=== PATIENT | female | born 1940 | race Caucasian/White ===

== ENCOUNTER 2020-08-05 08:06 | Outpatient (CLI) | payer MEDICARE ==
[~2020-08-05] VITALS: Ht 157.6 cm; Wt 89.0 kg
[~2020-08-05 08:06] MED LIST: ASPIRIN E.C. 8181 MG PO; CALCIUM 500500 M2 PO; CALCIUM500 MG PO; CARDI-OMEGA1000 MG PO; FOSAMAX5 MG PO; PROBIOTICA100 MILLIO PO; SYNTHROID0.088 MG PO
[2020-08-05 08:44] VITALS: BP 143/72; PULSE 68; TEMP 98.4
[2020-08-05] MEDS ORDERED: CALCIUM 600-D 61 TAB PO (08:49)
[2020-08-05] MEDS ORDERED: TYLENOL 325MG325 MG PO (08:50)
[2020-08-05] MEDS ORDERED: EPA FISH OIL1 SGL PO (08:50)
[2020-08-05] MEDS ORDERED: FLORINEF ACETA0.1 MG PO (11:55)
--- NOTE | 2020-08-05 12:00 | NUR ---
PT BACK TO ROOM, SITS UP IN W/C. NO C/O DIZZINESS AT THIS TIME, B/P 120/67 PULSE 68, 99%, RR AT 16. SKIN WARM AND DRY. INT D'CD INTACT. PT UP TO B/R TO VOID. REVIEWED DISCHARGE INST. WITH PT ON NEW MEDICATION AND PRINT OUT GIVEN. ALSO REVIEWED NEXT APPT, AND ECHO SCHEDULED FOR PT NEXT WEEK WITH VERBAL UNDERSTANDING. PT DISCHARGED VIA W/C TO LOBBY AT 12:45 WHEN FAMILY ARRIVED.
== END 2020-08-05 12:45 | disposition home or self-care (01) ==
LOC: COL.CAR 08:06
DX: R42 Dizziness and giddiness (principal); E03.9 Hypothyroidism, unspecified; M81.0 Age-related osteoporosis without current pathological fracture; Z88.0 Allergy status to penicillin